=== PATIENT | male | born 1955 | race Caucasian/White ===

== ENCOUNTER 2024-02-22 05:09 | Observation (INO) | payer MEDICARE, BC ==
[2024-02-22 05:43] LABS: #Basophils Less than 0.03 10x3/uL (0.0-0.2); %Basophils 0.4 % (0.0-1.0); %Eosinophils 1.5 % (0.0-10.0); %Lymphocytes 29.9 % (21.0-51.0); %Monocytes 12.4 % (0.0-10.0); %Neutrophils 55.6 % (42.0-75.0); Hematocrit 40.5 % (42.0-52.0); Hemoglobin 13.9 g/dL (14.0-18.0); Mean Corpuscular HGB CONC 34.3 g/dL (32.0-36.0); Mean Corpuscular Volume 93.1 fL (78.0-98.0); Mean Platelet Volume 10.7 fL (7.4-10.4); Platelet Count 204 10x3/uL (130-400); RBC Distribution Width 12.3 % (11.5-14.5); Red Blood Cell (RBC) Count 4.35 mill/uL (4.70-6.10)
[2024-02-22 05:59] LABS: PTT 27.5 sec (22.9-36.1)
[2024-02-22 06:05] LABS: ALT (SGPT) 17 U/L (8-55); AST (SGOT) 19 U/L (5-34); Alkaline Phosphatase 73 U/L (40-110); Anion Gap 15 mmol/L (10-20); BUN (Urea Nitrogen) 38 mg/dL (8.4-25.7); Bilirubin, Total 0.6 mg/dL (0.2-1.2); Calc. Creatinine Clearance 0 mL/min (70-130); Calcium 9.4 mg/dL (7.8-10.44); Carbon Dioxide 22 mmol/L (23-31); Chloride 106 mmol/L (98-107); Estimated GFR 43; Globulin 3.2 g/dL (2.4-3.5); Glucose 154 mg/dL (80-115); Potassium 3.8 mmol/L (3.5-5.1); Protein, Total 7.2 g/dL (5.8-8.1); Sodium 139 mmol/L (136-145)
[2024-02-22 06:07] LABS: Troponin I Less than 0.010 ng/mL (< 0.028)
[2024-02-22] MEDS ORDERED: Famotidine/PF 20 mg/2ml Vial ONE (06:28)
[2024-02-22] MEDS ORDERED: Aspirin Chewable 81 MG TAB ONE (06:28)
[2024-02-22] MEDS ORDERED: diphenhydrAMINE 50 MG/ML VIAL ONE (06:38)
[2024-02-22] MEDS ORDERED: Ondansetron PF 4 MG/2 ML Vial IVP PRN (07:40)
[2024-02-22] MEDS ORDERED: Bisacodyl 5 MG TAB PO PRN (07:40)
[2024-02-22] MEDS ORDERED: Bisacodyl 10 MG SUPP PR PRN (07:40)
[2024-02-22] MEDS ORDERED: Senokot S 8.6-50 MG TAB PO PRN (07:40)
[2024-02-22] MEDS ORDERED: Glucagon 1 MG/ML KIT IM PRN (07:52)
[2024-02-22] MEDS ORDERED: Dextrose 5% in Water 1,000 ML IV PRN (07:52)
[2024-02-22] MEDS ORDERED: Dextrose 50% Abboject 50 ML SYRINGE SLOW IVP PRN (07:52)
[2024-02-22] MEDS ORDERED: Sodium Chloride 0.9% 1,000 ML IV SCH (09:15)
[2024-02-22 09:37] LABS: Troponin I Less than 0.010 ng/mL (< 0.028)
[2024-02-22] MEDS: Sodium Chloride 0.9% 1,000 ML IV SCH (09:49)
[2024-02-22] MEDS: Acetaminophen 325 MG TAB PO SCH (09:51)
[2024-02-22 10:08] VITALS: BMI 28.4
[2024-02-22 11:29] LABS: Troponin I Less than 0.010 ng/mL (< 0.028)
[2024-02-22] MEDS ORDERED: Communication Order-Pharmacy FS SCH (12:45)
[2024-02-22] MEDS ORDERED: Iopamidol 370 76% 100 ML VIAL ONE (12:53)
[2024-02-22] MEDS ORDERED: fentaNYL 50 mcg/mL 1 mL Vial ONE (13:24)
[2024-02-22] MEDS ORDERED: Midazolam HCl 2 mg/2 ml Vial ONE (13:24)
[2024-02-22] MEDS ORDERED: Acetaminophen/Codeine 30-300mg Tablet PO PRN ×2 (15:40)
[2024-02-22] MEDS ORDERED: Sodium Chloride 0.9% 250 ML 200 ML IV PRN (15:40)
[2024-02-22] MEDS ORDERED: Nitroglycerin 0.4 MG TAB (25 Tab Bottle) SL PRN (15:40)
[2024-02-22] MEDS: Isosorbide Mononitrate 30 MG ER.TAB PO SCH (16:17)
[2024-02-22] MEDS: Ranolazine ER 500 MG TAB PO SCH (21:40)
[2024-02-23 04:08] LABS: #Basophils 0.03 10x3/uL (0.0-0.2); %Basophils 0.5 % (0.0-1.0); %Eosinophils 1.1 % (0.0-10.0); %Lymphocytes 29.6 % (21.0-51.0); %Neutrophils 59.6 % (42.0-75.0); Hematocrit 35.3 % (42.0-52.0); Hemoglobin 11.7 g/dL (14.0-18.0); Mean Corpuscular HGB CONC 33.1 g/dL (32.0-36.0); Mean Corpuscular Hemoglobin 31.4 pg (27.0-31.0); Mean Corpuscular Volume 94.6 fL (78.0-98.0); Mean Platelet Volume 11.1 fL (7.4-10.4); Platelet Count 179 10x3/uL (130-400); RBC Distribution Width 12.7 % (11.5-14.5); Red Blood Cell (RBC) Count 3.73 mill/uL (4.70-6.10)
[2024-02-23 04:24] LABS: ALT (SGPT) 14 U/L (8-55); AST (SGOT) 15 U/L (5-34); Albumin 3.5 g/dL (3.4-4.8); Alkaline Phosphatase 60 U/L (40-110); Bilirubin, Direct 0.2 mg/dL (0.1-0.3); Bilirubin, Total 0.7 mg/dL (0.2-1.2)
[2024-02-23 04:28] LABS: Anion Gap 10 mmol/L (10-20); BUN (Urea Nitrogen) 23 mg/dL (8.4-25.7); Calc. Creatinine Clearance 68 mL/min (70-130); Calcium 8.8 mg/dL (7.8-10.44); Carbon Dioxide 23 mmol/L (23-31); Cardiac Risk 2.7 (Less than 4.5); Chloride 112 mmol/L (98-107); Cholesterol 84 mg/dl (< 200 Desired); Estimated GFR 64; Glucose 99 mg/dL (80-115); HDL Cholesterol 31 mg/dL (>60 Neg Risk); LDL Cholesterol, Calculated 30 mg/dL; Magnesium 1.9 mg/dL (1.6-2.6); Potassium 4.4 mmol/L (3.5-5.1); Sodium 141 mmol/L (136-145); Triglycerides 115 mg/dL (Less than 150)
[2024-02-23] MEDS: Alogliptin 6.25 MG TAB PO SCH (08:31)
[2024-02-23] MEDS: Clopidogrel Bisulfate 75 MG TAB PO SCH (08:31)
[2024-02-23] MEDS: Ezetimibe 10 MG TAB PO SCH (08:31)
[2024-02-23] MEDS: Aspirin 81 mg Enteric Coated Tablet PO SCH (08:31)
[2024-02-23] MEDS: Isosorbide Mononitrate 30 MG ER.TAB PO SCH (08:32)
[2024-02-23] MEDS: Sertraline 25 MG TAB PO SCH (08:32)
[2024-02-23] MEDS: Rosuvastatin 20 MG TAB PO SCH (08:32)
[2024-02-23] MEDS: Pantoprazole DR 40 MG TAB PO SCH (08:32)
[2024-02-23] MEDS ORDERED: Amlodipine 10 MG TAB PO SCH ×2 (09:00→21:00)
[2024-02-23] MEDS ORDERED: Enoxaparin 40 MG (0.4 mL) SYRINGE SC SCH (09:00)
[2024-02-23] MEDS ORDERED: Aspirin Chewable 81 MG TAB PO SCH (09:00)
[2024-02-23] MEDS ORDERED: glyBURIDE 2.5 MG TAB PO SCH (09:00)
[2024-02-23] MEDS ORDERED: Aspirin 325 mg Enteric Coated Tablet PO SCH (09:00)
[2024-02-23 12:50] VITALS: BP 101/69; TEMP 97.9
== END 2024-02-23 14:15 | disposition home or self-care (01) ==
LOC: ERS 05:09 → SUATTDRO 05:09 → 2SW 09:08
PROVIDERS: ADMIT Family Medicine; ATTEND Internal Medicine
PROC: 4A023N7 Measurement of Cardiac Sampling and Pressure, Left Heart, Percutaneous Approach (ICD-10-PCS; principal; 2024-02-22)
DX: R07.9 Chest pain, unspecified (principal); I10 Essential (primary) hypertension; E11.9 Type 2 diabetes mellitus without complications; E78.5 Hyperlipidemia, unspecified; I25.110 Atherosclerotic heart disease of native coronary artery with unstable angina pectoris; N28.9 Disorder of kidney and ureter, unspecified; T78.3XXA Angioneurotic edema, initial encounter; F32.A Depression, unspecified; N17.9 Acute kidney failure, unspecified; Z79.82 Long term (current) use of aspirin; Z79.899 Other long term (current) drug therapy; Z79.84 Long term (current) use of oral hypoglycemic drugs; Z79.02 Long term (current) use of antithrombotics/antiplatelets; Z90.89 Acquired absence of other organs; Z90.79 Acquired absence of other genital organ(s); Z87.891 Personal history of nicotine dependence
CPT/HCPCS: 71045; 76705; 80048; 80053; 80061; 80076; 82565; 82962 ×2; 83735; 84443; 84484 ×2; 85025 ×2; 85610; 85730; 86850; 86900; 86901; 93005; 93458; 96374; 96375; 99285; C1769 ×2; G0378 ×2; J1200; J2250; J3490; J7030; 36415; 36416; 99152; 99153; J3010; Q9967

== ENCOUNTER 2024-05-16 05:33 | Observation (INO) | payer MEDICARE, BC ==
[2024-05-16] MEDS ORDERED: EPINEPHrine 1 MG/ML VIAL ONE (05:54)
[2024-05-16] MEDS ORDERED: diphenhydrAMINE 50 MG/ML VIAL ONE (05:54)
[2024-05-16] MEDS ORDERED: methylPREDNISolone Sod Succ/PF 125 MG/2 ML VIAL ONE (05:54)
[2024-05-16] MEDS ORDERED: Famotidine/PF 20 mg/2ml Vial ONE (05:55)
[2024-05-16 06:29] LABS: #Basophils Less than 0.03 10x3/uL (0.0-0.2); %Basophils 0.1 % (0.0-1.0); %Eosinophils 1.3 % (0.0-10.0); %Lymphocytes 13.4 % (21.0-51.0); %Monocytes 5.9 % (0.0-10.0); Hematocrit 40.9 % (42.0-52.0); Hemoglobin 14.2 g/dL (14.0-18.0); Mean Corpuscular HGB CONC 34.7 g/dL (32.0-36.0); Mean Corpuscular Hemoglobin 31.9 pg (27.0-31.0); Mean Corpuscular Volume 91.9 fL (78.0-98.0); Mean Platelet Volume 10.5 fL (7.4-10.4); Platelet Count 207 10x3/uL (130-400); RBC Distribution Width 13.2 % (11.5-14.5); Red Blood Cell (RBC) Count 4.45 mill/uL (4.70-6.10)
[2024-05-16] MEDS ORDERED: Tranexamic Acid 1,000 MG/10 ML VIAL ONE (06:30)
[2024-05-16] MEDS ORDERED: Sodium Chloride 0.9% 100 ML ONE (06:31)
[2024-05-16 06:46] LABS: ALT (SGPT) 29 U/L (8-55); AST (SGOT) 20 U/L (5-34); Albumin 3.5 g/dL (3.4-4.8); Alkaline Phosphatase 66 U/L (40-110); Anion Gap 16 mmol/L (10-20); BUN (Urea Nitrogen) 19 mg/dL (8.4-25.7); Bilirubin, Total 0.6 mg/dL (0.2-1.2); Calc. Creatinine Clearance 0 mL/min (70-130); Calcium 8.8 mg/dL (7.8-10.44); Carbon Dioxide 17 mmol/L (23-31); Chloride 111 mmol/L (98-107); Estimated GFR 70; Globulin 2.8 g/dL (2.4-3.5); Glucose 147 mg/dL (80-115); Potassium 3.7 mmol/L (3.5-5.1); Protein, Total 6.3 g/dL (5.8-8.1); Sodium 140 mmol/L (136-145)
[2024-05-16] MEDS ORDERED: Acetaminophen 325 MG TAB PO PRN (08:41)
[2024-05-16 10:33] VITALS: BMI 27.5
[2024-05-16] MEDS: Famotidine 20 MG TAB PO SCH (11:47)
[2024-05-16] MEDS: Enoxaparin 40 MG (0.4 mL) SYRINGE SC SCH (11:47)
[2024-05-16] MEDS ORDERED: Dextrose 50% Abboject 50 ML SYRINGE SLOW IVP PRN (14:09)
[2024-05-16] MEDS ORDERED: Dextrose 5% in Water 1,000 ML IV PRN (14:09)
[2024-05-16] MEDS ORDERED: Glucagon 1 MG/ML KIT IM PRN (14:09)
[2024-05-16] MEDS: Insulin Lispro 100 UNIT/ML 10 ML VIAL SC PRN ×2 (18:12→19:55)
[2024-05-17 05:57] LABS: #Basophils Less than 0.03 10x3/uL (0.0-0.2); %Basophils 0.2 % (0.0-1.0); %Eosinophils 1.1 % (0.0-10.0); %Lymphocytes 8.7 % (21.0-51.0); %Monocytes 5.6 % (0.0-10.0); %Neutrophils 83.9 % (42.0-75.0); Hematocrit 35.8 % (42.0-52.0); Hemoglobin 12.1 g/dL (14.0-18.0); Mean Corpuscular HGB CONC 33.8 g/dL (32.0-36.0); Mean Corpuscular Hemoglobin 31.4 pg (27.0-31.0); Mean Platelet Volume 10.6 fL (7.4-10.4); Platelet Count 189 10x3/uL (130-400); RBC Distribution Width 13.3 % (11.5-14.5); Red Blood Cell (RBC) Count 3.85 mill/uL (4.70-6.10)
[2024-05-17 06:12] LABS: Anion Gap 13 mmol/L (10-20); BUN (Urea Nitrogen) 20 mg/dL (8.4-25.7); Calc. Creatinine Clearance 75 mL/min (70-130); Calcium 8.8 mg/dL (7.8-10.44); Carbon Dioxide 19 mmol/L (23-31); Chloride 110 mmol/L (98-107); Estimated GFR 75; Glucose 176 mg/dL (80-115); Potassium 3.9 mmol/L (3.5-5.1); Sodium 138 mmol/L (136-145)
[2024-05-17 12:09] VITALS: BP 125/79; TEMP 97
[2024-05-17] MEDS: FLU (Fluad Triv) TS24-25 (65UP)/MF59C/PF 45 MCG/0.5 ML Syringe IM ONE (12:19)
== END 2024-05-17 13:10 | disposition home or self-care (01) ==
LOC: ERS 05:33 → T4-B 10:00
PROVIDERS: ADMIT Hospitalist; ATTEND Internal Medicine
DX: T78.3XXA Angioneurotic edema, initial encounter (principal); I10 Essential (primary) hypertension; I25.10 Atherosclerotic heart disease of native coronary artery without angina pectoris; E11.9 Type 2 diabetes mellitus without complications; Z85.46 Personal history of malignant neoplasm of prostate; Z90.79 Acquired absence of other genital organ(s); Z79.84 Long term (current) use of oral hypoglycemic drugs; Z79.82 Long term (current) use of aspirin; Z79.02 Long term (current) use of antithrombotics/antiplatelets; Z79.899 Other long term (current) drug therapy
CPT/HCPCS: 80048; 80053; 82962 ×2; 85025 ×2; 96365; 96372 ×2; 96375; 99284; G0378 ×3; J0171; J1200; J1650 ×2; J1815; J2919; J3490; 36415; 36416